=== PATIENT | female | born 1995 | race Two or more races ===

== ENCOUNTER 2021-12-24 01:07 | Inpatient (IN) | payer MEDICAID ==
[~2021-12-24] VITALS: Ht 152.4 cm; Wt 51.7 kg
[2021-12-24 01:49] LABS: BASOPHILS % (AUTO) 0.7 % (0.0-2.0); EOSINOPHILS % (AUTO) 0.6 % (1.0-6.0); HEMATOCRIT 27.5 % (36-46); HEMOGLOBIN 8.5 g/dL (12.0-16.0); LYMPHOCYTES # (AUTO) 1.3 K/uL (1.0-4.8); LYMPHOCYTES % (AUTO) 22.9 % (22.0-44.0); MEAN CORPUSCULAR HEMOGLOBIN 22.7 pg (26.0-34.0); MEAN CORPUSCULAR VOLUME 73 fL (80-100); MONOCYTES # (AUTO) 0.4 K/uL (0.1-1.0); MONOCYTES % (AUTO) 7.1 % (2.0-9.0); NEUTROPHILS # (AUTO) 3.9 K/uL (1.8-7.7); NEUTROPHILS % (AUTO) 68.7 % (40.0-70.0); PLATELET COUNT (AUTO) 227 K/uL (150-450); RED BLOOD CELL COUNT(AUTO) 3.76 MIL/uL (4.00-5.20); RED CELL DISTRIBUTION WIDTH 16.8 % (11.5-14.5)
[2021-12-24 01:53] LABS: COVID AG,FIA SOURCE NASOPHARYNGEAL
[2021-12-24 02:03] LABS: ALANINE AMINOTRANSFERASE 12 U/L (12-78); ALBUMIN 3.9 g/dL (3.4-5.0); ALKALINE PHOSPHATASE 91 U/L (46-116); ANION GAP 14 mmol/L (8-16); ASPARTATE AMINOTRANSFERASE 8 U/L (15-37); BILIRUBIN,TOTAL 0.2 mg/dL (0.1-1.0); CALCIUM, TOTAL 8.9 mg/dL (8.8-10.5); CARBON DIOXIDE 23 mmol/L (22-29); CHLORIDE 103 mmol/L (98-107); CREATININE 0.95 mg/dL (0.60-1.30); GLOMERULAR FILTR. RATE CALC > 60 mL/min (>60); GLUCOSE,RANDOM 130 mg/dL (70-110); SODIUM SERUM 140 mmol/L (136-145); TOTAL PROTEIN, SERUM 7.5 g/dL (6.4-8.2); UREA NITROGEN, BLOOD 12 mg/dL (7-18)
[2021-12-24 02:28] LABS: SALICYLATE 0.6 mg/dL (2.8-20.0)
[2021-12-24] MEDS ORDERED: POTASSIUM CHLORIDE 10% 40 MEQ/30 ML LIQUID UDCUP PO ONE (02:30)
[2021-12-24 02:39] LABS: ACETAMINOPHEN < 2 mcg/mL (10-30)
[2021-12-24 02:49] LABS: % IRON SATURATION 2.6 % (22-44); IRON, SERUM 13 mcg/dL (50-175); TOTAL IRON BINDING CAPACITY 482 mcg/dL (250-450)
[2021-12-24] MEDS ORDERED: QUEtiapine FUMARATE 100 MG TABLET PO PRN (03:30)
[2021-12-24] MEDS ORDERED: LORazepam 2 MG TABLET PO PRN (03:30)
[2021-12-24 05:05] LABS: APPEARANCE,URINE CLEAR (CLEAR); BILIRUBIN,URINE NEGATIVE (NEGATIVE); GLUCOSE, URINE (UA) NEGATIVE (NEGATIVE); KETONES,URINE NEGATIVE (NEGATIVE); LEUKOCYTE ESTERASE ,URINE NEGATIVE (NEGATIVE); NITRATE,URINE NEGATIVE (NEGATIVE); OCCULT BLOOD,URINE NEGATIVE (NEGATIVE); PH,URINE 5.5 (5.0-8.0); PROTEIN,URINE NEGATIVE (NEGATIVE); UROBILINOGEN,URINE 0.2 mg/dL (<=1.0)
[2021-12-24 05:10] LABS: AMPHET/METH SCREEN,URINE NEGATIVE (NEGATIVE); BARBITURATE SCREEN, URINE NEGATIVE (NEGATIVE); BENZODIAZEPINES SCREEN,URINE NEGATIVE (NEGATIVE); CANNABINOID SCREEN,URINE NEGATIVE (NEGATIVE); COCAINE SCREEN,URINE NEGATIVE (NEGATIVE); METHADONE SCREEN, URINE NEGATIVE (NEGATIVE); OPIATE SCREEN,URINE POSITIVE (NEGATIVE)
[2021-12-24 05:14] LABS: PHENCYCLIDINE SCREEN,URINE NEGATIVE (NEGATIVE)
[2021-12-24 05:22] LABS: BACTERIA,URINE Many /HPF (None Seen); RBC,URINE 0-2 /HPF (0-2); SQUAMOUS EPITHELIAL CELL,UR Rare /LPF (None Seen); WBC,URINE 0-2 /HPF (0-5)
[2021-12-24] MEDS ORDERED: NICOTINE 14 MG/24 HOUR PATCH TD PRN (16:15)
[2021-12-24] MEDS ORDERED: ALBUTEROL SULFATE HFA 90 MCG/PUFF 8 GM INHALER IH PRN (16:15)
[2021-12-24] MEDS ORDERED: GuaiFENesin/D-METHORPHAN [SUGAR-FREE] 200-20MG/10 ML SYRUP UDCUP PO PRN (16:15)
[2021-12-24] MEDS ORDERED: ONDANSETRON HCL 4 MG TABLET PO PRN (16:15)
[2021-12-24] MEDS ORDERED: IBUPROFEN 400 MG TABLET PO PRN (16:15)
[2021-12-24] MEDS ORDERED: MAG HYDROX/AL HYDROX/SIMETH ES 30 ML SUSPENSION UDCUP PO PRN (16:15)
[2021-12-24] MEDS ORDERED: CloNIDine HCL 0.1 MG TABLET PO PRN (16:15)
[2021-12-24] MEDS ORDERED: MAGNESIUM HYDROXIDE SUSPENSION 30 ML UDCUP PO PRN (16:15)
[2021-12-24] MEDS ORDERED: DOCUSATE SODIUM 100 MG CAPSULE PO PRN (16:15)
[2021-12-24] MEDS ORDERED: PETROLATUM,WHITE 28 GM JELLY TP PRN (16:15)
[2021-12-24] MEDS ORDERED: ACETAMINOPHEN 325 MG TABLET PO PRN (16:15)
[2021-12-24] MEDS ORDERED: LOPERAMIDE HCL 2 MG CAPSULE PO PRN (16:15)
[2021-12-25 07:23] LABS: CHOL/HDL RATIO 2.6 (3.9-5.7); CHOLESTEROL 157 mg/dL (131-200); HDL CHOLESTEROL 60 mg/dL (40-60); TRIGLYCERIDES 524 mg/dL (15-150)
[2021-12-25 13:55] VITALS: BP 114/67
[2021-12-25 15:33] VITALS: BP 114/67
[2021-12-25 16:26] VITALS: BP 113/66
[2021-12-25] MEDS: ZOLPIDEM TARTRATE 10 MG TABLET PO PRN (20:21)
[2021-12-26 03:06] VITALS: BP 118/63
[2021-12-26 08:10] VITALS: BP 94/50
[2021-12-26 09:00] VITALS: BP 98/64
[2021-12-26] MEDS: FLUoxetine HCL 20 MG CAPSULE PO SCH (10:44)
[2021-12-26 17:06] VITALS: BP 106/68
[2021-12-26] MEDS: ZOLPIDEM TARTRATE 10 MG TABLET PO PRN (20:24)
[2021-12-27 04:49] VITALS: BP 108/62
[2021-12-27] MEDS: FLUoxetine HCL 20 MG CAPSULE PO SCH (08:03)
[2021-12-27 08:48] VITALS: BP 89/55
[2021-12-27 13:00] VITALS: BP 93/60
[2021-12-27 16:17] VITALS: BP 89/52
[2021-12-27] MEDS: ZOLPIDEM TARTRATE 10 MG TABLET PO PRN (20:08)
[2021-12-27 20:27] VITALS: BP 102/58
[2021-12-28 03:41] VITALS: BP 110/63
[2021-12-28] MEDS: FLUoxetine HCL 20 MG CAPSULE PO SCH (08:11)
[2021-12-28 08:20] VITALS: BP 95/52
[2021-12-28] MEDS ORDERED: PROZ20 PO (09:15)
== END 2021-12-28 12:20 | disposition home or self-care (01) | DRG 751 ==
LOC: EMS 01:12 → B3A 12-25 11:16
PROVIDERS: ADMIT Psychiatry & Neurology Psychiatry; ATTEND Psychiatry & Neurology Psychiatry
DX: F33.2 Major depressive disorder, recurrent severe without psychotic features (principal); I95.9 Hypotension, unspecified; D50.9 Iron deficiency anemia, unspecified; E87.6 Hypokalemia; F43.10 Post-traumatic stress disorder, unspecified; G47.00 Insomnia, unspecified; Z20.822 Contact with and (suspected) exposure to COVID-19; F41.9 Anxiety disorder, unspecified; D64.9 Anemia, unspecified; T39.1X2A Poisoning by 4-Aminophenol derivatives, intentional self-harm, initial encounter; T40.0X2A Poisoning by opium, intentional self-harm, initial encounter; Z79.899 Other long term (current) drug therapy; Z91.51 Personal history of suicidal behavior; Y92.89 Other specified places as the place of occurrence of the external cause
CPT/HCPCS: 80053; 80061; 81001; 83540; 83550; 84703; 85025; 87081; 87086; 93005; 99285; G0480; G0481